=== PATIENT | male | born 1985 | race Hispanic/Latino ===

== ENCOUNTER 2018-02-21 18:23 | Emergency (ER) | payer BC, SELFPAY ==
[2018-02-21] MEDS ORDERED: NA CHLORIDE 0.9% 3,000 ML ONE (18:38)
--- NOTE | 2018-02-21 18:54 | RAD REPORT ---
EXAM DESCRIPTION: Lesley Single View02/21/2018 6:43 pm CLINICAL HISTORY: cough COMPARISON: 2012 FINDINGS: The lungs appear clear of acute infiltrate. The heart is normal size IMPRESSION: No acute abnormalities displayed
[2018-02-21 19:03] LABS: Absolute Lymphocytes (CBC) 3.6 K/uL (0.7-4.9); Absolute Neutrophil 7.5 K/uL (1.8-8.0); Basophils % 0.6 % (0-1.3); Eosinophils % 0.4 % (0-4.4); Hematocrit 49.6 % (39.6-49.0); Lymphocytes % 29.5 % (15.3-44.8); MCH 27.9 pg (27.0-35.0); MCV 82.7 fL (80-100); MPV 8.3 fL (7.6-11.3); Monocytes % 8.5 % (3.3-12.3)
[2018-02-21 19:14] LABS: ALT/SGPT 59 U/L (12-78); AST/SGOT 21 U/L (15-37); Albumin 4.3 g/dL (3.4-5.0); Alkaline Phosphatase 59 U/L (45-117); BUN Blood Urea Nitrogen 18 mg/dL (7-18); Bicarbonate 24 mmol/L (21-32); Bilirubin Direct 0.1 mg/dL (0-0.2); Bilirubin Total 0.4 mg/dL (0.2-1.0); CKMB Creatine Kinase MB < 1.0 ng/mL (0.3-3.6); Creatine Phosphokinase 138 U/L (39-308); Glucose Level 100 mg/dL (74-106); Magnesium 2.6 mg/dL (1.8-2.4); NT PRO-BNP 18 pg/mL (<125); Potassium 3.8 mmol/L (3.5-5.1); Protein, Total 8.5 g/dL (6.4-8.2); Sodium Level 141 mmol/L (136-145)
--- NOTE | 2018-02-21 19:27 | ER ---
Nurse's Notes [facility] Name: Seymour Ray Age: 32 yrs Sex: Male : 1985 Arrival Date: 02/21/2018 Time: 18:25 Bed 3 Private MD: Diagnosis: Heat exhaustion, unspecified;Syncope and collapse;Volume depletion Presentation: 02/21 18:26 Presenting complaint: EMS states: "He was in PPE for about an hour and started getting jl7 hot. He was a little disoriented when we first got him and he started to come around now.". Transition of care: patient was not received from another setting of care. Onset of symptoms was February 21, 2018 at 17:55. Risk Assessment: Do you want to hurt yourself or someone else? Patient reports no desire to harm self or others. Initial Sepsis Screen: Does the patient meet any 2 criteria? No. Patient's initial sepsis screen is negative. Does the patient have a suspected source of infection? No. Patient's initial sepsis screen is negative. Care prior to arrival: Medication(s) given: Normal saline infusion, 500 mL, IV initiated. 18 GA, in the left antecubital area, Oxygen administered. via a non-rebreather mask. 18:26 Method Of Arrival: EMS: [place] [id number] 18:26 Acuity: SERJIO 3 jl7 Triage Assessment: 18:39 General: Appears uncomfortable, obese, Behavior is calm, cooperative. Pain: Complains jl7 of pain in headache Pain does not radiate. Pain currently is 4 out of 10 on a pain scale. EENT: No signs and/or symptoms were reported regarding the EENT system. Neuro: Level of Consciousness is awake, alert, obeys commands, Oriented to person, place, time, situation. Cardiovascular: Rhythm is sinus tachycardia. Respiratory: Airway is patent Respiratory effort is even, unlabored, Respiratory pattern is regular, symmetrical. GI: Patient currently denies diarrhea, nausea, vomiting. : No signs and/or symptoms were reported regarding the genitourinary system. Derm: Skin is diaphoretic, Skin is red, Skin temperature is warm. Musculoskeletal: No signs and/or symptoms reported regarding the musculoskeletal system. Historical: - Allergies: 18:30 No Known Allergies; jl7 - Home Meds: 18:30 None [Active]; jl7 - PMHx: 18:30 None; jl7 - PSHx: 18:30 None; jl7 - Immunization history:: Adult Immunizations up to date. - Social history:: Smoking status: Patient uses tobacco products, chewing tobacco. - Ebola Screening: : No symptoms or risks identified at this time. - Family history:: not pertinent. Screenin:42 Abuse screen: Denies threats or abuse. Denies injuries from another. Nutritional jl7 screening: No deficits noted. Tuberculosis screening: No symptoms or risk factors identified. Fall Risk IV access (20 points). Total Haley Fall Scale indicates No Risk (0-24 pts). Assessment: 18:41 General: See triage assessment. jl7 19:17 General: Appears in no apparent distress. Behavior is calm, cooperative, appropriate ea for age. General:. Pain: Denies pain. Neuro: Level of Consciousness is awake, alert, obeys commands, Oriented to person, place, time, situation. Cardiovascular: Heart tones S1 S2 present Patient's skin is warm and dry. Respiratory: Airway is patent Respiratory effort is even, unlabored, Respiratory pattern is regular, symmetrical, Breath sounds are clear bilaterally. GI: Abdomen is obese, Bowel sounds present X 4 quads. : No signs and/or symptoms were reported regarding the genitourinary system. Derm: Skin is pink, warm \\T\\ dry. 20:16 Reassessment: Patient and/or family updated on plan of care and expected duration. Pain ea level reassessed. Patient is alert, oriented x 3, equal unlabored respirations, skin warm/dry/pink. Discharge instructions given to patient, verbalized the understanding of instructions. Patient denies pain at this time. Patient states feeling better. Patient states symptoms have improved. Vital Signs: 18:30 BP 134 / 86; Pulse 128; Resp 12 S; Temp 98.7(O); Pulse Ox 97% on R/A; Weight 156.94 kg jl7 (R); Height 6 ft. 1 in. (185.42 cm) (R); Pain 0/10; 20:16 BP 137 / 89; Pulse 92; Resp 18; Temp 98; Pulse Ox 98% on R/A; Pain 0/10; ea 18:30 Body Mass Index 45.65 (156.94 kg, 185.42 cm) [facility] ED Course: 18:25 Patient arrived in ED. aj 18:27 Jabari Gao MD is Attending Physician. bernardino 18:29 Triage completed. jl7 18:29 Maintain EMS IV. EMS line blew, line dc'd. jl7 18:30 Arm band placed on right wrist. jl7 18:31 Initial lab(s) drawn, by me, sent to lab. Inserted saline lock: 20 gauge in right dh3 antecubital area, using aseptic technique. Blood collected. 18:42 X-ray completed. Portable x-ray completed in exam room. Patient tolerated procedure bb2 well. 18:42 Mariposa Ferrara, RN is Primary Nurse. aj 18:42 XRAY Chest (1 view) In Process Unspecified. EDMS 18:42 Patient has correct armband on for positive identification. Placed in gown. Bed in low jl7 position. Call light in reach. Side rails up X2. shelter monitor on. Pulse ox on. NIBP on. Warm blanket given. 18:45 EKG done, by ED staff, reviewed by Jabari Gao MD. [facility] 19:12 Mary Jackson, RN is Primary Nurse. ea 20:27 No provider procedures requiring assistance completed. IV discontinued, intact, ea bleeding controlled, No redness/swelling at site. Pressure dressing applied. Administered Medications: 18:39 Drug: NS 0.9% 1000 ml Route: IV; Rate: 1 bolus; Site: right antecubital; jl7 20:29 Follow up: Response: No adverse reaction; IV Status: Completed infusion; IV Intake: ea 1000ml 18:39 Drug: NS 0.9% 1000 ml Route: IV; Rate: 1 bolus; Site: right antecubital; jl7 20:28 Follow up: Response: No adverse reaction; IV Status: Completed infusion; IV Intake: ea 1000ml 19:12 Drug: NS 0.9% 1000 ml Route: IV; Rate: 1 bolus; Site: right antecubital; jl7 20:28 Follow up: Response: No adverse reaction; IV Status: Completed infusion; IV Intake: ea 1000ml 20:03 Drug: Potassium Effervescent Tablet 25 mEq Route: PO; ea 20:28 Follow up: Response: No adverse reaction ea Intake: 20:28 IV: 1000ml; Total: 1000ml. ea 20:28 IV: 1000ml; Total: 2000ml. ea 20:29 IV: 1000ml; Total: 3000ml. ea Outcome: 19:27 Discharge ordered by . bernardino 20:27 Discharged to home ambulatory, with friend. abimbola 20:27 Condition: improved 20:27 Discharge instructions given to patient, Instructed on discharge instructions, follow up and referral plans. Demonstrated understanding of instructions, follow-up care. 20:29 Patient left the ED. ea Signatures: Dispatcher [employer] EDMariposa Clemons, RN Jabari Blue MD MD cha Leal, Jahala, RN RN 7 Jessica Pederson [facility] Mary Jackson RN RN ea Bock, Brittany 2
--- NOTE | 2018-02-21 19:27 | EDPHYS ---
Physician Documentation [facility] Name: Seymour Ray Age: 32 yrs Sex: Male : 1985 Arrival Date: 02/21/2018 Time: 18:25 Bed 3 Private MD: ED Physician Jabari Gao HPI: 02/21 18:55 This 32 yrs old Male presents to ER via EMS with complaints of Heat Exposure. bernardino 18:55 syncope, heat related. The patient has experienced near-syncope. Onset: The bernardino symptoms/episode began/occurred just prior to arrival. Duration: This was a single episode, that lasted 20 second(s). Context: the episode(s) was witnessed, by co-worker(s), occurred at work, occurred while the patient was working, Just prior to the episode the patient experienced heat exposure. Associated injury: The patient did not suffer any apparent associated injury. Associated signs and symptoms: The patient has no apparent associated signs or symptoms. Severity of symptoms: At their worst the symptoms were mild in the emergency department the symptoms are unchanged. Historical: - Allergies: 18:30 No Known Allergies; jl7 - Home Meds: 18:30 None [Active]; jl7 - PMHx: 18:30 None; jl7 - PSHx: 18:30 None; jl7 - Immunization history:: Adult Immunizations up to date. - Social history:: Smoking status: Patient uses tobacco products, chewing tobacco. - Ebola Screening: : No symptoms or risks identified at this time. - Family history:: not pertinent. ROS: 18:55 Constitutional: Negative for fever, chills, and weight loss, Eyes: Negative for injury, bernardino pain, redness, and discharge, ENT: Negative for injury, pain, and discharge, Neck: Negative for injury, pain, and swelling, Cardiovascular: Negative for chest pain, palpitations, and edema, Respiratory: Negative for shortness of breath, cough, wheezing, and pleuritic chest pain, Abdomen/GI: Negative for abdominal pain, nausea, vomiting, diarrhea, and constipation, Back: Negative for injury and pain, : Negative for injury, bleeding, discharge, and swelling, MS/Extremity: Negative for injury and deformity, Skin: Negative for injury, rash, and discoloration, Psych: Negative for depression, anxiety, suicide ideation, homicidal ideation, and hallucinations, Allergy/Immunology: Negative for hives, rash, and allergies, Endocrine: Negative for neck swelling, polydipsia, polyuria, polyphagia, and marked weight changes, Hematologic/Lymphatic: Negative for swollen nodes, abnormal bleeding, and unusual bruising. 18:55 Neuro: Positive for speech changes, weakness. Exam: 18:55 Constitutional: This is a well developed, well nourished patient who is awake, alert, bernardino and in no acute distress. Head/Face: Normocephalic, atraumatic. Eyes: Pupils equal round and reactive to light, extra-ocular motions intact. Lids and lashes normal. Conjunctiva and sclera are non-icteric and not injected. Cornea within normal limits. Periorbital areas with no swelling, redness, or edema. ENT: Nares patent. No nasal discharge, no septal abnormalities noted. Tympanic membranes are normal and external auditory canals are clear. Oropharynx with no redness, swelling, or masses, exudates, or evidence of obstruction, uvula midline. Mucous membranes moist. Neck: Trachea midline, no thyromegaly or masses palpated, and no cervical lymphadenopathy. Supple, full range of motion without nuchal rigidity, or vertebral point tenderness. No Meningismus. Chest/axilla: Normal chest wall appearance and motion. Nontender with no deformity. No lesions are appreciated. Respiratory: Lungs have equal breath sounds bilaterally, clear to auscultation and percussion. No rales, rhonchi or wheezes noted. No increased work of breathing, no retractions or nasal flaring. Abdomen/GI: Soft, non-tender, with normal bowel sounds. No distension or tympany. No guarding or rebound. No evidence of tenderness throughout. Back: No spinal tenderness. No costovertebral tenderness. Full range of motion. Male : Normal genitalia with no discharge or lesions. Skin: Warm, dry with normal turgor. Normal color with no rashes, no lesions, and no evidence of cellulitis. MS/ Extremity: Pulses equal, no cyanosis. Neurovascular intact. Full, normal range of motion. Neuro: Awake and alert, GCS 15, oriented to person, place, time, and situation. Cranial nerves II-XII grossly intact. Motor strength 5/5 in all extremities. Sensory grossly intact. Cerebellar exam normal. Normal gait. Psych: Awake, alert, with orientation to person, place and time. Behavior, mood, and affect are within normal limits. 18:55 Cardiovascular: Rate: tachycardic, Rhythm: regular, Pulses: Pulses are 4+ in bilateral radial, brachial, femoral, popliteal, posterior tibial and and dorsalis pedis arteries.. Heart sounds: normal, Edema: is not appreciated, JVD: is not appreciated. 19:27 Neuro: Orientation: is normal, appropriate for stated age, Mentation: is normal, bernardino appropriate for stated age, no acute changes, Memory: is normal, appropriate for stated age, no acute changes, Cranial nerves: grossly normal, is grossly normal based on the patient's age, no acute changes, Cerebellar function: is grossly normal, is grossly normal based on the patient's age, no acute changes, Motor: is normal, is grossly normal based on the patient's age, no acute changes, moves all fours, strength is normal, Sensation: is normal, no obvious gross deficits, appropriate no acute changes, Gait: not tested. Deep tendon reflexes are 2+ (normal) in the bilateral brachioradialis, bicep, tricep and patellar and Achilles tendons, Babinski testing is normal, seizure activity, is not displayed by the patient. 19:36 Musculoskeletal/extremity: DVT Exam: No signs of deep vein thrombosis. no pain, no bernardino swelling, no tenderness, negative Homans' sign noted on exam, no appreciated bluish discoloration, no erythema, no increased warmth. Vital Signs: 18:30 BP 134 / 86; Pulse 128; Resp 12 S; Temp 98.7(O); Pulse Ox 97% on R/A; Weight 156.94 kg jl7 (R); Height 6 ft. 1 in. (185.42 cm) (R); Pain 0/10; 20:16 BP 137 / 89; Pulse 92; Resp 18; Temp 98; Pulse Ox 98% on R/A; Pain 0/10; ea 18:30 Body Mass Index 45.65 (156.94 kg, 185.42 cm) jl7 MDM: 18:27 Patient medically screened. [facility] 18:57 Data reviewed: vital signs, nurses notes, lab test result(s), EKG, radiologic studies, [facility] plain films. 02/21 18: Order name: Basic Metabolic Panel; Complete Time: 19: [facility] 02/21 18:26 Order name: CBC with Diff; Complete Time: 19:26 02/21 18:26 Order name: Ckmb; Complete Time: 19:26 02/21 18:26 Order name: CPK; Complete Time: 19:26 02/21 18:26 Order name: LFT's; Complete Time: 19:26 02/21 18:26 Order name: Magnesium; Complete Time: 19:26 02/21 18:26 Order name: NT PRO-BNP; Complete Time: 19:02/21 18:26 Order name: PT-INR; Complete Time: 19:26 02/21 18:26 Order name: Ptt, Activated; Complete Time: 19:26 02/21 18:26 Order name: Troponin (emerg Dept Use Only); Complete Time: :02/21 18:26 Order name: XRAY Chest (1 view); Complete Time: 19:26 02/21 18:26 Order name: EKG; Complete Time: 18:27 02/21 18:26 Order name: Cardiac monitoring; Complete Time: 18:38 02/21 18:26 Order name: EKG - Nurse/Tech; Complete Time: 19:07 02/21 18:26 Order name: IV Saline Lock; Complete Time: 18:38 02/21 18:26 Order name: Labs collected and sent; Complete Time: 18:38 02/21 18:26 Order name: O2 Per Protocol; Complete Time: 18:38 02/21 18:26 Order name: O2 Sat Monitoring; Complete Time: 18:38 02/21 18:54 Order name: PO challenge: ice h2o; Complete Time: 19:10 [facility] Administered Medications: 18:39 Drug: NS 0.9% 1000 ml Route: IV; Rate: 1 bolus; Site: right antecubital; jl7 20:29 Follow up: Response: No adverse reaction; IV Status: Completed infusion; IV Intake: ea 1000ml 18:39 Drug: NS 0.9% 1000 ml Route: IV; Rate: 1 bolus; Site: right antecubital; jl7 20:28 Follow up: Response: No adverse reaction; IV Status: Completed infusion; IV Intake: ea 1000ml 19:12 Drug: NS 0.9% 1000 ml Route: IV; Rate: 1 bolus; Site: right antecubital; jl7 20:28 Follow up: Response: No adverse reaction; IV Status: Completed infusion; IV Intake: ea 1000ml 20:03 Drug: Potassium Effervescent Tablet 25 mEq Route: PO; ea 20:28 Follow up: Response: No adverse reaction ea Disposition: 02/21/18 19:27 Discharged to Home. Impression: Heat exhaustion, unspecified, Syncope and collapse, Volume depletion. - Condition is Stable. - Discharge Instructions: Syncope, Weakness, Syncope, [id number], Heat Exhaustion Information, Weakness, [id number]. - Medication Reconciliation Form, Thank You Letter, Antibiotic Education, Prescription Opioid Use form. - Follow up: Private Physician; When: 2 - 3 days; Reason: Recheck today's complaints, Continuance of care, Re-evaluation by your physician. - Problem is new. - Symptoms have improved. Signatures: Dispatcher [employer] EDMS Jabari Gao MD MD cha Leal, Jahala RN RN jl7 Mary Jackson RN RN ea Corrections: (The following items were deleted from the chart) 20:29 19:27 02/21/2018 19:27 Discharged to Home. Impression: Heat exhaustion, unspecified; ea Syncope and collapse; Volume depletion. Condition is Stable. Discharge Instructions: Syncope, Weakness, Syncope, [id number], Heat Exhaustion Information, Weakness, [id number]. Forms are Medication Reconciliation Form, Thank You Letter, Antibiotic Education, Prescription Opioid Use. Follow up: Private Physician; When: 2 - 3 days; Reason: Recheck today's complaints, Continuance of care, Re-evaluation by your physician. Problem is new. Symptoms have improved. bernardino
[2018-02-21] MEDS ORDERED: POTASSIUM 25 MEQ EFFERV TAB ONE (20:00)
--- NOTE | 2018-02-22 06:46 | EKG ---
Test Date: 2018-02-21 Test Time: 18:38:56 After School Program Director: LAURI MEASUREMENT RESULTS: Intervals: Rate: 126 [place]: 156 QRSD: 86 QT: 300 QTc: 434 [place]: P: 48 [place]: 156 QRS: 233 T: 45 INTERPRETIVE STATEMENTS: Sinus tachycardia Right superior axis deviation Septal infarct, age undetermined Abnormal ECG No previous ECG available for comparison Electronically Signed On 02-22-18 06:45:06 CDT by Kirby Carl
== END 2018-02-21 20:29 | disposition home or self-care (01) ==
LOC: ER 18:23
DX: E86.9 Volume depletion, unspecified (principal); T67.5XXA Heat exhaustion, unspecified, initial encounter; X58.XXXA Exposure to other specified factors, initial encounter; Y93.89 Activity, other specified; Y92.89 Other specified places as the place of occurrence of the external cause; Y99.8 Other external cause status; Z72.0 Tobacco use
CPT/HCPCS: 36415; 71045; 80048; 80076; 82550; 82553; 83735; 83880; 84484; 85025; 85610; 85730; 93005; 96360; 96361; 99285; J7030

== ENCOUNTER 2019-02-02 14:09 | Emergency (ER) | payer SELFPAY ==
--- NOTE | 2019-02-02 15:05 | EDPHYS ---
Physician Documentation [facility] Name: Seymour Ray Age: 33 yrs Sex: Male : 1985 Arrival Date: 02/02/2019 Time: 14:10 Bed 28 Private MD: ED Physician Domingo Cohen HPI: 02/02 14:56 This 33 yrs old Male presents to ER via EMS with complaints of Ankle Injury. jr8 14:56 The patient presents with decreased range of motion, pain, swelling, tenderness. The jr8 complaints affect the right ankle. Onset: The symptoms/episode began/occurred acutely, today. Context: The problem was sustained at work, resulted from a mis-step by the patient, The mechanism of injury involved inversion of the affected ankle. The patient is unable to bear weight. Associated signs and symptoms: The patient has no apparent associated signs or symptoms. Modifying factors: The symptoms are alleviated by nothing, the symptoms are aggravated by weight bearing, movement. Severity of symptoms: At their worst the symptoms were moderate, in the emergency department the symptoms are unchanged. The patient has not experienced similar symptoms in the past. The patient has not recently seen a physician. 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 [place] a popping noise. Pain to lateral ankle since incident . Historical: - Allergies: 14:17 No Known Allergies; ca1 - Home Meds: 14:17 Antidepressant [Active]; ca1 - PMHx: 14:17 Depression; ca1 - PSHx: 14:17 None; ca1 - Immunization history:: Adult Immunizations up to date, Last tetanus immunization: unknown. - Social history:: Smoking status: Patient uses tobacco products, chewing tobacco. - Ebola Screening: : Patient negative for fever greater than or equal to 101.5 degrees Fahrenheit, and additional compatible Ebola Virus Disease symptoms Patient denies exposure to infectious person Patient denies travel to an Ebola-affected area in the 21 days before illness onset No symptoms or risks identified at this time. ROS: 14:56 Eyes: Negative for injury, pain, redness, and discharge, ENT: Negative for injury, jr8 pain, and discharge, Neck: Negative for injury, pain, and swelling, Cardiovascular: Negative for chest pain, palpitations, and edema, Respiratory: Negative for shortness of breath, cough, wheezing, and pleuritic chest pain, Abdomen/GI: Negative for abdominal pain, nausea, vomiting, diarrhea, and constipation, Back: Negative for injury and pain, Skin: Negative for injury, rash, and discoloration, Neuro: Negative for headache, weakness, numbness, tingling, and seizure. 14:56 MS/extremity: Positive for decreased range of motion, pain, swelling, tenderness, of the right ankle. Exam: 14:56 Eyes: Pupils equal round and reactive to light, extra-ocular motions intact. Lids and jr8 lashes normal. Conjunctiva and sclera are non-icteric and not injected. Cornea within normal limits. Periorbital areas with no swelling, redness, or edema. ENT: Nares patent. No nasal discharge, no septal abnormalities noted. Tympanic membranes are normal and external auditory canals are clear. Oropharynx with no redness, swelling, or masses, exudates, or evidence of obstruction, uvula midline. Mucous membranes moist. Neck: Trachea midline, no thyromegaly or masses palpated, and no cervical lymphadenopathy. Supple, full range of motion without nuchal rigidity, or vertebral point tenderness. No Meningismus. Cardiovascular: Regular rate and rhythm with a normal S1 and S2. No gallops, murmurs, or rubs. Normal PMI, no JVD. No pulse deficits. Respiratory: Lungs have equal breath sounds bilaterally, clear to auscultation and percussion. No rales, rhonchi or wheezes noted. No increased work of breathing, no retractions or nasal flaring. Abdomen/GI: Soft, non-tender, with normal bowel sounds. No distension or tympany. No guarding or rebound. No evidence of tenderness throughout. Back: No spinal tenderness. No costovertebral tenderness. Full range of motion. Skin: Warm, dry with normal turgor. Normal color with no rashes, no lesions, and no evidence of cellulitis. Neuro: Awake and alert, GCS 15, oriented to person, place, time, and situation. Cranial nerves II-XII grossly intact. Motor strength 5/5 in all extremities. Sensory grossly intact. Cerebellar exam normal. Normal gait. 14:56 Musculoskeletal/extremity: Extremities: grossly normal except: noted in the right ankle: Patient has mild to moderate soft tissue swelling to right lateral ankle with point tenderness to lateral malleolus. No other trauma noted. Decreased ROM secondary to pain , Circulation is intact in all extremities. Pulses: noted to be 2+ in the right radial artery, right dorsalis pedis artery, left radial artery and left dorsalis pedis artery, Sensation intact. Vital Signs: 14:14 BP 146 / 75; Pulse 124; Resp 20; Temp 97.9(O); Pulse Ox 97% ; lt1 14:17 Weight 158.76 kg (R); Height 6 ft. 1 in. (185.42 cm) (R); Pain 6/10; ca1 14:17 Body Mass Index 46.18 (158.76 kg, 185.42 cm) ca1 Procedures: 15:03 Splinting: Splint applied to right ankle using surendra wrap, applied by tech. Examined by jrNirali me, post splint application: neurovascular intact, 2+ distal pulses palpable, brisk capillary refill noted, Patient tolerated well. Crutch training provided to patient and/or family. Return demonstration given. MDM: 14:11 Patient medically screened. jr8 15:03 Data reviewed: vital signs, nurses notes, radiologic studies, plain films. Data jr8 interpreted: Pulse oximetry: on room air is 97 %. Interpretation: normal. Counseling: I had a detailed discussion with the patient and/or guardian regarding: the historical points, exam findings, and any diagnostic results supporting the discharge/admit diagnosis, radiology results, the need for outpatient follow up, a orthopedic surgeon, to return to the emergency department if symptoms worsen or persist or if there are any questions or concerns that arise at home. 02/02 14:22 Order name: XRAY Ankle RIGHT 3 view jr8 02/02 14:58 Order name: Surendra Wrap; Complete Time: 15:13 jr8 02/02 15:03 Order name: Crutches; Complete Time: 15:13 jr8 Administered Medications: No medications were administered Disposition: 16:11 Co-signature as Attending Physician, Domingo Cohen MD I agree with the assessment and kdr plan of care. Disposition: 02/02/19 15:04 Discharged to Home. Impression: Sprain of ankle. - Condition is Stable. - Discharge Instructions: Ankle Sprain. - Prescriptions for Ibuprofen 800 mg Oral Tablet - take 1 tablet by ORAL route every 12 hours As needed take with food; 20 tablet. - Work release form, Medication Reconciliation Form, Thank You Letter, Antibiotic Education, Prescription Opioid Use form. - Follow up: Aldo Campbell MD; When: 7 - 10 days; Reason: If symptoms return, Recheck today's complaints, Continuance of care, Re-evaluation by your physician. - Problem is new. - Symptoms have improved. Signatures: Dispatcher [employer] EDMS Domingo Cohen MD MD [facility] Shay Núñez PA PA jr8 Agata Bell RN RN ca1 Corrections: (The following items were deleted from the chart) 15:29 15:04 02/02/2019 15:04 Discharged to Home. Impression: Sprain of ankle. Condition is ca1 Stable. Forms are Medication Reconciliation Form, Thank You Letter, Antibiotic Education, Prescription Opioid Use. Follow up: Aldo Campbell; When: 7 - 10 days; Reason: If symptoms return, Recheck today's complaints, Continuance of care, Re-evaluation by your physician. Problem is new. Symptoms have improved. jr8
--- NOTE | 2019-02-02 15:05 | ER ---
Nurse's Notes [facility] Name: Seymour Ray Age: 33 yrs Sex: Male : 1985 Arrival Date: 02/02/2019 Time: 14:10 Bed 28 Private MD: Diagnosis: Sprain of ankle Presentation: 02/02 14:13 Presenting complaint: EMS states: PT rolled ankle and fell on R arm. Denies arm pain. ca1 C/O R ankle pain of 7/10 and swelling. Transition of care: patient was not received from another setting of care. Onset of symptoms was February 02, 2019. Risk Assessment: Do you want to hurt yourself or someone else? Patient reports no desire to harm self or others. Initial Sepsis Screen: Does the patient meet any 2 criteria? No. Patient's initial sepsis screen is negative. Does the patient have a suspected source of infection? No. Patient's initial sepsis screen is negative. Care prior to arrival: Splint applied. 14:13 Method Of Arrival: EMS: [facility] ca1 14:13 Acuity: SERJIO 4 ca1 Triage Assessment: 14:17 General: Appears in no apparent distress. Behavior is calm, cooperative, appropriate ca1 for age. Pain: Complains of pain in right foot Pain currently is 6 out of 10 on a pain scale. Musculoskeletal: Circulation, motion, and sensation intact. Capillary refill < 3 seconds, Range of motion: limited in right ankle. Historical: - Allergies: 14:17 No Known Allergies; ca1 - Home Meds: 14:17 Antidepressant [Active]; ca1 - PMHx: 14:17 Depression; ca1 - PSHx: 14:17 None; ca1 - Immunization history:: Adult Immunizations up to date, Last tetanus immunization: unknown. - Social history:: Smoking status: Patient uses tobacco products, chewing tobacco. - Ebola Screening: : Patient negative for fever greater than or equal to 101.5 degrees Fahrenheit, and additional compatible Ebola Virus Disease symptoms Patient denies exposure to infectious person Patient denies travel to an Ebola-affected area in the 21 days before illness onset No symptoms or risks identified at this time. Screenin:19 Abuse screen: Denies threats or abuse. Denies injuries from another. Nutritional ca1 screening: No deficits noted. Tuberculosis screening: No symptoms or risk factors identified. Fall Risk None identified. Assessment: 14:19 Reassessment: SEE TRIAGE ASSESSMENT. ca1 15:28 Reassessment: Patient appears in no apparent distress at this time. Patient is alert, ca1 oriented x 3, equal unlabored respirations, skin warm/dry/pink. Surendra wrap on R ankle. Demonstrated proper crutch walking. Vital Signs: 14:14 BP 146 / 75; Pulse 124; Resp 20; Temp 97.9(O); Pulse Ox 97% ; lt1 14:17 Weight 158.76 kg (R); Height 6 ft. 1 in. (185.42 cm) (R); Pain 6/10; ca1 14:17 Body Mass Index 46.18 (158.76 kg, 185.42 cm) ca1 ED Course: 14:10 Patient arrived in ED. ca1 14:11 Shay Núñez PA is PHCP. jr8 14:11 Domingo Cohen MD is Attending Physician. jr8 14:13 Agata Bell RN is Primary Nurse. ca1 14:16 Triage completed. ca1 14:17 Arm band placed on right wrist. ca1 14:19 Patient has correct armband on for positive identification. Bed in low position. Call ca1 light in reach. Side rails up X 1. Pulse ox on. NIBP on. Warm blanket given. 14:56 XRAY Ankle RIGHT 3 view In Process Unspecified. EDMS 15:04 Aldo Campbell MD is Referral Physician. jr8 15:12 Crutch training done. Surendra wrap to right ankle. lt1 15:29 No provider procedures requiring assistance completed. Patient did not have IV access ca1 during this emergency room visit. Administered Medications: No medications were administered Outcome: 15:04 Discharge ordered by . jr8 15:29 Discharged to home ambulatory, with crutches, with family. ca1 15:29 Condition: stable 15:29 Discharge instructions given to patient, Instructed on discharge instructions, follow up and referral plans. medication usage, crutch walking, Demonstrated understanding of instructions, follow-up care, medications, crutch walking, Prescriptions given X 1. 15:29 Patient left the ED. ca1 Signatures: Dispatcher [employer] EDMS Shay Núñez PA PA jrAgata Metcalf RN RN ca1 Margaret Givens lt1
--- NOTE | 2019-02-02 15:34 | RAD REPORT ---
EXAM DESCRIPTION: RAD - Ankle Right 3 View - 02/02/2019 2:55 pm CLINICAL HISTORY: Ankle pain, twisting injury COMPARISON: None. FINDINGS: No fracture, dislocation or periosteal reaction. No joint effusion seen. No joint space na rrowing. Small bone density along the medial margin of the talus is not suspected to be an acute bony injury. Significant soft tissue swelling is present laterally in the patient's injuries believed to be from ankle inversion. Small plantar spur is present. IMPRESSION: Soft tissue swelling is present without fracture confirmed.
== END 2019-02-02 15:29 | disposition home or self-care (01) ==
LOC: ER 14:09
DX: S93.401A Sprain of unspecified ligament of right ankle, initial encounter (principal); W22.8XXA Striking against or struck by other objects, initial encounter; Y93.89 Activity, other specified; Y92.89 Other specified places as the place of occurrence of the external cause; Y99.8 Other external cause status; F17.220 Nicotine dependence, chewing tobacco, uncomplicated; F32.9 Major depressive disorder, single episode, unspecified
CPT/HCPCS: 99284

== ENCOUNTER 2019-03-02 17:07 | Emergency (ER) | payer SELFPAY ==
[2019-03-02] MEDS ORDERED: NA CHLORIDE 0.9% 0 ML ONE ×2 (17:43→18:42)
[2019-03-02 17:50] LABS: Absolute Lymphocytes (CBC) 2.2 K/uL (0.7-4.9); Basophils % 0.6 % (0-1.3); Hematocrit 43.6 % (39.6-49.0); Lymphocytes % 19.5 % (15.3-44.8); MPV 8.5 fL (7.6-11.3); RBC Red Blood Cell Count 5.27 M/uL (4.33-5.43)
[2019-03-02 17:53] LABS: Protime INR 1.13
--- NOTE | 2019-03-02 18:24 | RAD REPORT ---
EXAM DESCRIPTION: RAD - Chest Single View - 03/02/2019 6:17 pm CLINICAL HISTORY: general weakness Chest pain. COMPARISON: Chest Single View dated 02/21/2018; CHEST PA AND LAT 2 VIEW dated 06/14/2013 FINDINGS: Portable technique limits examination quality. The lungs are grossly clear. The heart is normal in size. No displaced fractures. IMPRESSION: No acute intrathoracic process suspected.
[2019-03-02 18:27] LABS: ALT/SGPT 65 U/L (12-78); AST/SGOT 24 U/L (15-37); Albumin 3.9 g/dL (3.4-5.0); Alkaline Phosphatase 57 U/L (45-117); BUN Blood Urea Nitrogen 16 mg/dL (7-18); Bicarbonate 23 mmol/L (21-32); Bilirubin Direct < 0.1 mg/dL (0-0.2); Bilirubin Total 0.4 mg/dL (0.2-1.0); Creatine Phosphokinase 121 U/L (39-308); Glucose Level 99 mg/dL (74-106); Magnesium 2.1 mg/dL (1.8-2.4); NT PRO-BNP 45 pg/mL (<125); Potassium 3.1 mmol/L (3.5-5.1); Protein, Total 7.4 g/dL (6.4-8.2); Sodium Level 142 mmol/L (136-145); Troponin (Emerg Dept Use Only) < 0.02 ng/mL (0.0-0.045)
[2019-03-02] MEDS ORDERED: KCL 20 MEQ/100 mL IVPB 20 MEQ/100 ML BAG IV ONE (18:42)
[2019-03-02] MEDS ORDERED: NA CHLORIDE 0.9% 1,000 ML ONE ×3 (20:07→20:09)
[2019-03-02 20:45] LABS: Urine Blood NEGATIVE (NEG); Urine Glucose NEGATIVE (NEG); Urine Protein 2+ (NEG); Urine Specific Gravity >1.030 (1.005-1.030)
--- NOTE | 2019-03-02 21:36 | ER ---
Nurse's Notes [facility] Name: Seymour Ray Age: 33 yrs Sex: Male : 1985 Arrival Date: 03/02/2019 Time: 17:13 Bed 24 Private MD: Diagnosis: Hypokalemia;Dehydration;Heat exhaustion, unspecified;Other acute kidney failure Presentation: 03/02 17:14 Presenting complaint: EMS states: pt working all day under the sun since 0800 today. At ca1 1500, pt started to feel fatigued and general body weakness. Pt c/o cramps all over but more on both lower extremities. Transition of care: patient was not received from another setting of care. Onset of symptoms was March 02, 2019. Risk Assessment: Do you want to hurt yourself or someone else? Patient reports no desire to harm self or others. Initial Sepsis Screen: Does the patient meet any 2 criteria? No. Patient's initial sepsis screen is negative. Does the patient have a suspected source of infection? No. Patient's initial sepsis screen is negative. Care prior to arrival: Medication(s) given: Normal saline infusion, 500 mL, IV initiated. 18 GA, in the left antecubital area, Glucose check: 109. 17:14 Method Of Arrival: EMS: [facility] ca1 17:14 Acuity: SERJIO 3 ca1 Triage Assessment: 17:18 General: Appears in no apparent distress. uncomfortable, obese, Behavior is calm, ca1 cooperative, appropriate for age. Pain: Complains of pain in right leg and left leg. Historical: - Allergies: 17:18 No Known Allergies; ca1 - Home Meds: 17:18 None [Active]; ca1 - PMHx: 17:18 Depression; ca1 - PSHx: 17:18 None; ca1 - Immunization history:: Adult Immunizations not up to date. - Social history:: Smoking status: Patient uses tobacco products, chewing tobacco. - Ebola Screening: : Patient negative for fever greater than or equal to 101.5 degrees Fahrenheit, and additional compatible Ebola Virus Disease symptoms Patient denies exposure to infectious person Patient denies travel to an Ebola-affected area in the 21 days before illness onset No symptoms or risks identified at this time. Screenin:20 Abuse screen: Denies threats or abuse. Denies injuries from another. Nutritional ca1 screening: No deficits noted. Tuberculosis screening: No symptoms or risk factors identified. Fall Risk IV access (20 points). Assessment: 17:20 General: Appears in no apparent distress. uncomfortable, obese, Behavior is calm, ca1 cooperative, appropriate for age. Pain: Complains of pain in abdomen, right leg and left leg Pain currently is 5 out of 10 on a pain scale. Quality of pain is described as crampy, Pain began 3 hours ago. Is intermittent. Neuro: Level of Consciousness is awake, alert, obeys commands, Oriented to person, place, time, situation. Neuro: Piping Supervisor are equal bilaterally Moves all extremities. Speech is normal, Facial symmetry appears normal, Pupils are PERRLA. Neuro: Reports dizziness. Cardiovascular: Heart tones S1 S2 present Capillary refill < 3 seconds Patient's skin is warm and dry. Pulses are all present. Rhythm is sinus tachycardia. Respiratory: Airway is patent Respiratory effort is even, unlabored, Respiratory pattern is regular, symmetrical, Breath sounds are clear bilaterally. GI: Abdomen is round non-distended, Bowel sounds present X 4 quads. Abd is soft and non tender X 4 quads. Reports nausea. : No deficits noted. No signs and/or symptoms were reported regarding the genitourinary system. EENT: No deficits noted. No signs and/or symptoms were reported regarding the EENT system. Derm: Skin is intact, is healthy with good turgor, Skin is pink, warm \T\ dry. Musculoskeletal: Circulation, motion, and sensation intact. Capillary refill < 3 seconds, Range of motion: intact in all extremities. 19:12 Reassessment: Patient appears in no apparent distress at this time. Patient and/or ca1 family updated on plan of care and expected duration. Pain level reassessed. Patient is alert, oriented x 3, equal unlabored respirations, skin warm/dry/pink. 20:15 Reassessment: Patient appears in no apparent distress at this time. Patient and/or ca1 family updated on plan of care and expected duration. Pain level reassessed. Patient is alert, oriented x 3, equal unlabored respirations, skin warm/dry/pink. Leg cramps decreased. 21:30 Reassessment: Patient appears in no apparent distress at this time. Patient and/or ca1 family updated on plan of care and expected duration. Pain level reassessed. Patient is alert, oriented x 3, equal unlabored respirations, skin warm/dry/pink. Pending repeat blood work results Patient states feeling better. Vital Signs: 17:18 BP 100 / 62; Pulse 118; Resp 25; Temp 97.9(TE); Pulse Ox 98% on R/A; Weight 158.76 kg ca1 (R); Height 6 ft. 1 in. (185.42 cm) (R); Pain 5/10; 19:12 BP 111 / 59; Pulse 76; Resp 20 S; Pulse Ox 97% on R/A; ca1 20:15 BP 105 / 60; Pulse 90; Resp 17 S; Pulse Ox 96% on R/A; ca1 21:30 BP 100 / 63; Pulse 82; Resp 17 S; Temp 98(O); Pulse Ox 96% on R/A; ca1 17:18 Body Mass Index 46.18 (158.76 kg, 185.42 cm) ca1 ED Course: 17:13 Patient arrived in ED. ca1 17:16 Jabari Godoy PA is PHCP. cp 17:16 Niles Frias MD is Attending Physician. cp 17:18 Triage completed. ca1 17:18 Arm band placed on right wrist. EKG completed in triage. Results shown to MD. ca1 17:19 EKG done, by microcomputer technician. reviewed by Jabari CONWAY. sm3 17:20 No provider procedures requiring assistance completed. Maintain EMS IV. Dressing ca1 intact. Good blood return noted. Site clean \T\ dry. Gauge \T\ site: g18 LAC. 17:20 Patient has correct armband on for positive identification. Placed in gown. Bed in low ca1 position. Call light in reach. Side rails up X2. monitoring tech on. Pulse ox on. NIBP on. Warm blanket given. 17:33 Agata Bell, RN is Primary Nurse. ca1 18:14 X-ray completed. Portable x-ray completed in exam room. Patient tolerated procedure mh1 well. 18:18 XRAY Chest (1 view) In Process Unspecified. EDMS 21:49 IV discontinued, intact, bleeding controlled, No redness/swelling at site. Pressure ca1 dressing applied. Administered Medications: 17:46 Drug: NS 0.9% 1000 ml Route: IV; Rate: 1 bolus; Site: left antecubital; ca1 18:50 Follow up: IV Status: Completed infusion; IV Intake: 1000ml ca1 18:40 Drug: NS 0.9% 1000 ml Route: IV; Rate: 1 bolus; Site: left antecubital; ca1 19:45 Follow up: Response: No adverse reaction; IV Status: Completed infusion; IV Intake: ca1 1000ml 18:42 Drug: Potassium Chloride 20 mEq Route: IV; Rate: calculated rate; Site: left ca1 antecubital; 20:50 Follow up: Response: No adverse reaction; IV Status: Completed infusion; IV Intake: ca1 100ml 20:11 Drug: NS 0.9% 1000 ml Route: IV; Rate: 1 bolus; Site: left antecubital; ca1 21:15 Follow up: Response: No adverse reaction; IV Status: Completed infusion; IV Intake: ca1 1000ml Intake: 18:50 IV: 1000ml; Total: 1000ml. ca1 19:45 IV: 1000ml; Total: 2000ml. ca1 20:50 IV: 100ml; Total: 2100ml. ca1 21:15 IV: 1000ml; Total: 3100ml. ca1 Outcome: 21:32 Discharge ordered by MD. cp 21:49 Discharged to home ambulatory, with family. ca1 21:49 Condition: stable 21:49 Discharge instructions given to patient, Instructed on discharge instructions, follow up and referral plans. Demonstrated understanding of instructions, follow-up care. 21:49 Patient left the ED. ca1 Signatures: Dispatcher [employer] EDLatasha Campoverde 1 Jabari Godoy PA PA Anne Alatorre 3 Agata Bell RN RN ca1
--- NOTE | 2019-03-02 21:37 | EDPHYS ---
Physician Documentation [facility] Name: Seymour Ray Age: 33 yrs Sex: Male : 1985 Arrival Date: 03/02/2019 Time: 17:13 Bed 24 Private MD: ED Physician Niles Frias HPI: 03/02 17:35 This 33 yrs old Male presents to ER via EMS with complaints of General cp Weakness. 17:35 general weakness, generalized cramping. Onset: The symptoms/episode began/occurred just cp prior to arrival. Patient reports working outside all morning and today. 17:35 Severity of symptoms: in the emergency department the symptoms have improved mildly. cp Historical: - Allergies: 17:18 No Known Allergies; ca1 - Home Meds: 17:18 None [Active]; ca1 - PMHx: 17:18 Depression; ca1 - PSHx: 17:18 None; ca1 - Immunization history:: Adult Immunizations not up to date. - Social history:: Smoking status: Patient uses tobacco products, chewing tobacco. - Ebola Screening: : Patient negative for fever greater than or equal to 101.5 degrees Fahrenheit, and additional compatible Ebola Virus Disease symptoms Patient denies exposure to infectious person Patient denies travel to an Ebola-affected area in the 21 days before illness onset No symptoms or risks identified at this time. ROS: 17:45 Constitutional: Negative for body aches, chills, fever, poor PO intake. cp 17:45 Eyes: Negative for injury, pain, redness, and discharge. cp 17:45 ENT: Negative for drainage from ear(s), ear pain, sore throat, difficulty swallowing, difficulty handling secretions. 17:45 Cardiovascular: Negative for chest pain, edema, palpitations. 17:45 Respiratory: Negative for cough, shortness of breath, wheezing. 17:45 Abdomen/GI: Negative for vomiting, diarrhea, constipation, black/tarry stool, rectal bleeding. 17:45 : Negative for urinary symptoms, difficulty urinating. 17:45 Skin: Negative for cellulitis, rash. 17:45 Neuro: Positive for generalized weakness, Negative for altered mental status, dizziness, headache. 17:45 All other systems are negative. Exam: 17:25 ECG was reviewed by the Attending Physician. cp 17:50 Constitutional: The patient appears in no acute distress, alert, awake, cp non-diaphoretic, non-toxic, well developed, well nourished, obese. 17:50 Head/Face: Normocephalic, atraumatic. Eyes: Pupils equal round and reactive to light, cp extra-ocular motions intact. Lids and lashes normal. Conjunctiva and sclera are non-icteric and not injected. Cornea within normal limits. Periorbital areas with no swelling, redness, or edema. ENT: Nares patent. No nasal discharge, no septal abnormalities noted. Tympanic membranes are normal and external auditory canals are clear. Oropharynx with no redness, swelling, or masses, exudates, or evidence of obstruction, uvula midline. Mucous membranes moist. Neck: Trachea midline, no thyromegaly or masses palpated, and no cervical lymphadenopathy. Supple, full range of motion without nuchal rigidity, or vertebral point tenderness. No Meningismus. Chest/axilla: Normal chest wall appearance and motion. Nontender with no deformity. No lesions are appreciated. 17:50 Cardiovascular: Rate: tachycardic, Rhythm: regular, Edema: is not appreciated, JVD: is not appreciated. 17:50 Respiratory: the patient does not display signs of respiratory distress, Respirations: normal, no use of accessory muscles, no retractions, no splinting, no tachypnea, labored breathing, is not present, Breath sounds: are clear throughout, no decreased breath sounds, no stridor, no wheezing. 17:50 Abdomen/GI: Inspection: obese Bowel sounds: active, all quadrants, Palpation: abdomen is soft and non-tender, in all quadrants, rebound tenderness, is not appreciated, voluntary guarding, is not appreciated, involuntary guarding, is not appreciated. 17:50 Back: pain, is absent, ROM is normal. 17:50 Skin: no rash present. 17:50 Neuro: Orientation: to person, place \T\ time. Mentation: is normal, Cerebellar function: is grossly normal, Motor: moves all fours, strength is normal, Sensation: is normal. Vital Signs: 17:18 BP 100 / 62; Pulse 118; Resp 25; Temp 97.9(TE); Pulse Ox 98% on R/A; Weight 158.76 kg ca1 (R); Height 6 ft. 1 in. (185.42 cm) (R); Pain 5/10; 19:12 BP 111 / 59; Pulse 76; Resp 20 S; Pulse Ox 97% on R/A; ca1 20:15 BP 105 / 60; Pulse 90; Resp 17 S; Pulse Ox 96% on R/A; ca1 21:30 BP 100 / 63; Pulse 82; Resp 17 S; Temp 98(O); Pulse Ox 96% on R/A; ca1 17:18 Body Mass Index 46.18 (158.76 kg, 185.42 cm) ca1 MDM: 17:29 Patient medically screened. cp 21:30 Data reviewed: vital signs, nurses notes, lab test result(s), EKG, radiologic studies, cp plain films. 21:30 Test interpretation: by ED physician or midlevel provider: ECG, plain radiologic cp studies. Counseling: I had a detailed discussion with the patient and/or guardian regarding: the historical points, exam findings, and any diagnostic results supporting the discharge/admit diagnosis, lab results, radiology results, the need for outpatient follow up, a family practitioner, to return to the emergency department if symptoms worsen or persist or if there are any questions or concerns that arise at home. Response to treatment: the patient's symptoms have markedly improved after treatment, and as a result, I will discharge patient. ED course: VSS. Patient reports he is feeling better. Will discharge to home to continue oral hydration. 03/02 17:28 Order name: Basic Metabolic Panel; Complete Time: 18:36 cp 03/02 19:37 Interpretation: Normal except: K 3.1; CRE 2.18; GFR 35. cp 03/02 17:28 Order name: CBC with Diff; Complete Time: 18:36 cp 03/02 19:37 Interpretation: Normal except: WBC 11.3; NEUT A 8.2. cp 03/02 17:28 Order name: LFT's; Complete Time: 18:36 cp 03/02 17:28 Order name: Magnesium; Complete Time: 18:36 cp 03/02 17:28 Order name: NT PRO-BNP; Complete Time: 18:36 cp 03/02 17:28 Order name: PT-INR; Complete Time: 18:36 cp 03/02 17:28 Order name: Troponin (emerg Dept Use Only); Complete Time: 18:36 cp 03/02 17:28 Order name: XRAY Chest (1 view); Complete Time: 18:36 cp 03/02 17:28 Order name: CPK; Complete Time: 18:36 cp 03/02 19:12 Order name: Urine Dipstick--Ancillary (enter results); Complete Time: 21:25 ar5 03/02 19:54 Order name: BMP: redraw after potassium and IV fluids; Complete Time: 21:25 cp 05 21:26 Interpretation: Normal except: CL 108; CRE 1.60; GFR 50. cp 03/02 17:28 Order name: EKG; Complete Time: 17:31 cp 03/02 17:28 Order name: Cardiac monitoring; Complete Time: 17:43 cp 03/02 17:28 Order name: EKG - Nurse/Tech; Complete Time: 17:43 cp 03/02 17:28 Order name: IV Saline Lock; Complete Time: 17:43 cp 03/02 17:28 Order name: Labs collected and sent; Complete Time: 17:42 cp 03/02 17:28 Order name: O2 Per Protocol; Complete Time: 17:42 cp 03/02 17:28 Order name: O2 Sat Monitoring; Complete Time: 17:42 cp 03/02 18:37 Order name: Urine Dipstick-Ancillary (obtain specimen); Complete Time: 19:12 cp EC:25 Rate is 116 beats/min. Rhythm is regular. FL interval is normal. QRS interval is cp normal. QT interval is normal. Interpreted by me. Reviewed by me. Administered Medications: 17:46 Drug: NS 0.9% 1000 ml Route: IV; Rate: 1 bolus; Site: left antecubital; ca1 18:50 Follow up: IV Status: Completed infusion; IV Intake: 1000ml ca1 18:40 Drug: NS 0.9% 1000 ml Route: IV; Rate: 1 bolus; Site: left antecubital; ca1 19:45 Follow up: Response: No adverse reaction; IV Status: Completed infusion; IV Intake: ca1 1000ml 18:42 Drug: Potassium Chloride 20 mEq Route: IV; Rate: calculated rate; Site: left ca1 antecubital; 20:50 Follow up: Response: No adverse reaction; IV Status: Completed infusion; IV Intake: ca1 100ml 20:11 Drug: NS 0.9% 1000 ml Route: IV; Rate: 1 bolus; Site: left antecubital; ca1 21:15 Follow up: Response: No adverse reaction; IV Status: Completed infusion; IV Intake: ca1 1000ml Disposition: 03/02/19 21:32 Discharged to Home. Impression: Hypokalemia, Dehydration, Heat exhaustion, unspecified, Other acute kidney failure. - Condition is Stable. - Discharge Instructions: Dehydration, Adult, Potassium Content of Foods, Acute Kidney Injury, Adult, Hypokalemia, Rehydration, Adult. - Medication Reconciliation Form, Thank You Letter, Antibiotic Education, Prescription Opioid Use, Work release form form. - Follow up: Private Physician; When: 1 - 2 days; Reason: Recheck today's complaints. - Problem is new. - Symptoms have improved. Addendum: 03/04/2019 07:02 Co-signature as Attending Physician, Niles Frias MD. r n Signatures: Dispatcher [employer] EDNiles Sargent MD MD rn Jabari Godoy PA PA cp Acob, Agata RN RN ca1 Corrections: (The following items were deleted from the chart) 03/02 19:37 19:37 Normal except: WBC 11.3. cp cp 21:49 21:32 03/02/2019 21:32 Discharged to Home. Impression: Hypokalemia; Dehydration; Heat ca1 exhaustion, unspecified; Other acute kidney failure. Condition is Stable. Forms are Medication Reconciliation Form, Thank You Letter, Antibiotic Education, Prescription Opioid Use. Follow up: Private Physician; When: 1 - 2 days; Reason: Recheck today's complaints. Problem is new. Symptoms have improved. cp
[2019-03-02 22:32] VITALS: O2SAT 96
[2019-03-02 22:34] VITALS: BP 100/63; TEMP 98
--- NOTE | 2019-03-03 08:24 | EKG ---
Test Date: 2019-03-02 Test Time: 17:15:29 Window Dresser: ÁNGEL MEASUREMENT RESULTS: Intervals: Rate: 116 ND: 160 QRSD: 98 QT: 338 QTc: 469 [place]: P: 64 ND: 160 QRS: 124 T: 41 INTERPRETIVE STATEMENTS: Sinus tachycardia Right axis deviation Septal infarct, age undetermined Abnormal ECG Compared to ECG 02/21/2018 18:38:56 Right-axis deviation now present Right superior axis no longer present Myocardial infarct finding still present Electronically Signed On 03-03-19 08:24:11 CDT by Kirby Carl
== END 2019-03-02 21:49 | disposition home or self-care (01) ==
LOC: ER 17:07
DX: E87.6 Hypokalemia (principal); E86.0 Dehydration; N17.8 Other acute kidney failure; X30.XXXA Exposure to excessive natural heat, initial encounter; Z72.0 Tobacco use
CPT/HCPCS: 36415; 71045; 80048; 80076; 81003; 82550; 83735; 83880; 84484; 85025; 85610; 93005; 96361; 96365; 96366; 99284; J7030

== ENCOUNTER 2019-08-22 06:13 | Emergency (ER) | payer BC, SELFPAY ==
[2019-08-22] MEDS ORDERED: HYDROCODONE/APAP 7.5/325 MG TAB ONE (06:35)
[2019-08-22] MEDS ORDERED: KETOROLAC 30 MG/ML INJ ONE (06:35)
[2019-08-22] MEDS ORDERED: LIDOCAINE 4% PATCH ONE (06:35)
--- NOTE | 2019-08-22 08:54 | EDPHYS ---
Physician Documentation [facility] Name: Seymour Ray Age: 33 yrs Sex: Male : 1985 Arrival Date: 08/22/2019 Time: 06:16 Bed 20 Private MD: ED Physician Jabari Gao HPI: 08/22 06:36 This 33 yrs old Male presents to ER via Ambulatory with complaints of Low Back kb Pain. 06:36 The patient presents with pain that is acute. The symptoms are located in the right low kb back. The pain does not radiate. The problem was sustained when lifting. Onset: The symptoms/episode began/occurred 3 day(s) ago. Modifying factors: The patient symptoms are alleviated by nothing, the patient symptoms are aggravated by any movement. Associated signs and symptoms: The patient has no apparent associated signs or symptoms. Severity of symptoms: At their worst the symptoms were moderate, in the emergency department the symptoms are unchanged. The patient has not experienced similar symptoms in the past. The patient has not recently seen a physician. Pt reports he was lifting a lot of stuff on Wednesday, woke up Wednesday with right low back pain that is worse with movement. Denies radiation. Denies urinary symptoms, numbness, tingling. Historical: - Allergies: 06:28 No Known Allergies; bb - Home Meds: 06:28 None [Active]; bb - PMHx: 06:28 Depression; bb - PSHx: 06:28 None; bb - Immunization history:: Adult Immunizations up to date. - Coronavirus screen:: The patient has NOT traveled to [place] in the past 14 days. Proceed with normal triage process as indicated. - Social history:: Smoking status: Patient reports the use of cigarette tobacco products, denies chronic smoking, but will smoke occasionally, Patient reports use of chewing tobacco. Patient uses alcohol, but reports only rare drinking. - Ebola Screening: : No symptoms or risks identified at this time. ROS: 06:35 Constitutional: Negative for fever, chills, and weight loss, Neck: Negative for injury, kb pain, and swelling, Cardiovascular: Negative for chest pain, palpitations, and edema, Respiratory: Negative for shortness of breath, cough, wheezing, and pleuritic chest pain, Abdomen/GI: Negative for abdominal pain, nausea, vomiting, diarrhea, and constipation, : Negative for injury, bleeding, discharge, and swelling, MS/Extremity: Negative for injury and deformity, Skin: Negative for injury, rash, and discoloration, Neuro: Negative for headache, weakness, numbness, tingling, and seizure. 06:35 Back: Positive for pain at rest, pain with movement, of the right low back. Exam: 06:36 Constitutional: This is a well developed, well nourished patient who is awake, alert, kb and in no acute distress. Head/Face: Normocephalic, atraumatic. Chest/axilla: Normal chest wall appearance and motion. Nontender with no deformity. No lesions are appreciated. Cardiovascular: Regular rate and rhythm with a normal S1 and S2. No gallops, murmurs, or rubs. Normal PMI, no JVD. No pulse deficits. Respiratory: Lungs have equal breath sounds bilaterally, clear to auscultation and percussion. No rales, rhonchi or wheezes noted. No increased work of breathing, no retractions or nasal flaring. Abdomen/GI: Soft, non-tender, with normal bowel sounds. No distension or tympany. No guarding or rebound. No evidence of tenderness throughout. Skin: Warm, dry with normal turgor. Normal color with no rashes, no lesions, and no evidence of cellulitis. MS/ Extremity: Pulses equal, no cyanosis. Neurovascular intact. Full, normal range of motion. Neuro: Awake and alert, GCS 15, oriented to person, place, time, and situation. Cranial nerves II-XII grossly intact. Motor strength 5/5 in all extremities. Sensory grossly intact. Cerebellar exam normal. Normal gait. 06:36 Back: pain, that is moderate, of the right low back, ROM is painful, with all movement, normal spinal alignment noted. Vital Signs: 06:28 BP 134 / 87; Pulse 91; Resp 16 S; Temp 97.7(O); Pulse Ox 97% on R/A; Weight 165.56 kg bb (R); Height 6 ft. 1 in. (185.42 cm) (R); Pain 8/10; 06:28 Body Mass Index 48.16 (165.56 kg, 185.42 cm) bb MDM: 06:17 Patient medically screened. kb 06:32 Data reviewed: vital signs, nurses notes. Data interpreted: Pulse oximetry: on room air kb is 97 %. Interpretation: normal. Counseling: I had a detailed discussion with the patient and/or guardian regarding: the historical points, exam findings, and any diagnostic results supporting the discharge/admit diagnosis, the need for outpatient follow up, a family practitioner, to return to the emergency department if symptoms worsen or persist or if there are any questions or concerns that arise at home. Administered Medications: 06:38 Drug: [place] (7.5 mg-325 mg) 1 tabs Route: PO; jd3 06:56 Follow up: Response: No adverse reaction; RASS: Alert and Calm (0) jd3 06:39 Drug: TORadol 30 mg Route: IM; Site: right deltoid; jd3 06:58 Follow up: Response: No adverse reaction jd3 06:40 Drug: Lidocaine Solution (4%) 1 patches Route: Topical; Site: affected area; jd3 06:56 Follow up: Response: No adverse reaction jd3 Disposition: 07:06 Co-signature as Attending Physician, Jabari Gao MD I agree with the assessment and bernardino plan of care. Disposition: 08/22/19 06:33 Discharged to Home. Impression: Low back pain. - Condition is Stable. - Discharge Instructions: Musculoskeletal Pain, Back Injury Prevention, [id number], Back Pain, Adult, [id number], Back Exercises, [id number]. - Prescriptions for Diclofenac Sodium 75 mg Oral Tablet, Delayed Release (E.C.) - take 1 tablet by ORAL route 2 times per day As needed; 30 tablet. orphenadrine citrate 100 mg Oral Tablet Sustained Release - take 1 tablet by ORAL route 2 times per day As needed; 20 tablet. - Medication Reconciliation Form, Thank You Letter, Antibiotic Education, Prescription Opioid Use, Work release form form. - Follow up: Emergency Department; When: As needed; Reason: Worsening of condition. Follow up: Private Physician; When: 2 - 3 days; Reason: Recheck today's complaints, Continuance of care, Re-evaluation by your physician. Signatures: Samra Jacobs, DIRECTOR OF ENTERPRISE ARCHITECTURE-C HAL-Jabari Venegas MD MD cha Ballard, Brenda, RN RN Raheel Bianchi RN RN jd3 Corrections: (The following items were deleted from the chart) 06:36 06:35 Back: Positive for pain at rest, pain with movement, janee weller 07:00 06:33 08/22/2019 06:33 Discharged to Home. Impression: Low back pain. Condition is jd3 Stable. Forms are Medication Reconciliation Form, Thank You Letter, Antibiotic Education, Prescription Opioid Use. Follow up: Emergency Department; When: As needed; Reason: Worsening of condition. Follow up: Private Physician; When: 2 - 3 days; Reason: Recheck today's complaints, Continuance of care, Re-evaluation by your physician. janee
--- NOTE | 2019-08-22 08:54 | ER ---
Nurse's Notes [facility] Name: Seymour Ray Age: 33 yrs Sex: Male : 1985 Arrival Date: 08/22/2019 Time: 06:16 Bed 20 Private MD: Diagnosis: Low back pain Presentation: 08/22 06:25 Presenting complaint: Patient states: he was moving stuff around on Wednesday and bending bb over a lot has lower right back pain no radiation, denies dysuria, vomiting, diarrhea, fever, the pain is constant 8/10. Transition of care: patient was not received from another setting of care. Onset of symptoms was August 20, 2019. Risk Assessment: Do you want to hurt yourself or someone else? Patient reports no desire to harm self or others. Initial Sepsis Screen: Does the patient meet any 2 criteria? No. Patient's initial sepsis screen is negative. Does the patient have a suspected source of infection? No. Patient's initial sepsis screen is negative. Care prior to arrival: None. 06:25 Method Of Arrival: Ambulatory bb 06:25 Acuity: SERJIO 3 bb Historical: - Allergies: 06:28 No Known Allergies; bb - Home Meds: 06:28 None [Active]; bb - PMHx: 06:28 Depression; bb - PSHx: 06:28 None; bb - Immunization history:: Adult Immunizations up to date. - Coronavirus screen:: The patient has NOT traveled to [place] in the past 14 days. Proceed with normal triage process as indicated. - Social history:: Smoking status: Patient reports the use of cigarette tobacco products, denies chronic smoking, but will smoke occasionally, Patient reports use of chewing tobacco. Patient uses alcohol, but reports only rare drinking. - Ebola Screening: : No symptoms or risks identified at this time. Screenin:27 Abuse screen: Denies threats or abuse. Nutritional screening: No deficits noted. jd3 Tuberculosis screening: No symptoms or risk factors identified. Fall Risk Ambulatory Aid- None/Bed Rest/Nurse Assist (0 pts). Gait- Normal/Bed Rest/Wheelchair (0 pts) Mental Status- Oriented to own ability (0 pts). Total Haley Fall Scale indicates No Risk (0-24 pts). Assessment: 06:25 General: Appears in no apparent distress. uncomfortable, Behavior is calm, cooperative, jd3 appropriate for age. Pain: Complains of pain in low back area Quality of pain is described as aching, shooting, pinching, Aggravated by increased activity, repositioning. Neuro: Level of Consciousness is awake, alert, obeys commands, Oriented to person, place, time, situation. Cardiovascular: Denies chest pain, Capillary refill < 3 seconds Patient's skin is warm and dry. Respiratory: Airway is patent Respiratory effort is even, unlabored, Respiratory pattern is regular, symmetrical, Denies cough, shortness of breath. GI: No signs and/or symptoms were reported involving the gastrointestinal system. Patient currently denies abdominal pain, constipation, diarrhea, nausea, vomiting. : No signs and/or symptoms were reported regarding the genitourinary system. Denies burning with urination, urinary frequency. EENT: No signs and/or symptoms were reported regarding the EENT system. Derm: Skin is intact, Skin is dry, Skin is normal, Skin temperature is warm. Musculoskeletal: Circulation, motion, and sensation intact. Range of motion: intact in all extremities. 07:00 Reassessment: Patient appears in no apparent distress at this time. Patient and/or jd3 family updated on plan of care and expected duration. Pain level reassessed. Patient is alert, oriented x 3, equal unlabored respirations, skin warm/dry/pink. Patient states feeling better. Vital Signs: 06:28 BP 134 / 87; Pulse 91; Resp 16 S; Temp 97.7(O); Pulse Ox 97% on R/A; Weight 165.56 kg bb (R); Height 6 ft. 1 in. (185.42 cm) (R); Pain 8/10; 06:28 Body Mass Index 48.16 (165.56 kg, 185.42 cm) bb ED Course: 06:16 Patient arrived in ED. cl3 06:17 Samra Jacobs FNP-C is [facility]. kb 06:17 Jabari Gao MD is Attending Physician. kb 06:25 Raheel Bolaños RN is Primary Nurse. jd3 06:27 Triage completed. bb 06:27 Patient has correct armband on for positive identification. Placed in gown. Bed in low jd3 position. Call light in reach. Side rails up X 1. Adult w/ patient. 06:27 Arm band placed on. jd3 06:59 No provider procedures requiring assistance completed. Patient did not have IV access jd3 during this emergency room visit. Administered Medications: 06:38 Drug: [place] (7.5 mg-325 mg) 1 tabs Route: PO; jd3 06:56 Follow up: Response: No adverse reaction; RASS: Alert and Calm (0) jd3 06:39 Drug: TORadol 30 mg Route: IM; Site: right deltoid; jd3 06:58 Follow up: Response: No adverse reaction jd3 06:40 Drug: Lidocaine Solution (4%) 1 patches Route: Topical; Site: affected area; jd3 06:56 Follow up: Response: No adverse reaction jd3 Outcome: 06:33 Discharge ordered by MD. weller 06:59 Discharged to home ambulatory, with family. jd3 06:59 Condition: stable 06:59 Discharge instructions given to patient, family, Instructed on discharge instructions, follow up and referral plans. medication usage, Demonstrated understanding of instructions, follow-up care, medications, Prescriptions given X 2. 07:00 Patient left the ED. jd3 Signatures: Samra Jacobs, PRECAST MOLDER-C PRECAST MOLDER-CkKim Mcelroy, RN RN Raheel Bianchi RN RN Cassie Freeman cl3
[2019-08-22 09:36] VITALS: BP 132/50; TEMP 98.4; O2SAT 100
== END 2019-08-22 07:00 | disposition home or self-care (01) ==
LOC: ER 06:13
DX: M54.5 Low back pain (principal)
CPT/HCPCS: 96372; 99283

== ENCOUNTER 2021-07-18 13:38 | Emergency (ER) | payer BC ==
[2021-07-18 14:20] LABS: Absolute Lymphocytes (CBC) 1.9 K/uL (0.7-4.9); Hematocrit 43.1 % (39.6-49.0); Lymphocytes % 20.3 % (15.3-44.8); MPV 7.7 fL (7.6-11.3)
[2021-07-18] MEDS ORDERED: ONDANSETRON 4 MG/2 ML VIAL ONE (14:32)
[2021-07-18] MEDS ORDERED: NA CHLORIDE 0.9% 0 ML ONE (14:32)
[2021-07-18] MEDS ORDERED: MORPHINE 4 MG/ML SYR ONE (14:32)
[2021-07-18] MEDS ORDERED: NA CHLORIDE 0.9% 1,000 ML ONE (14:33)
[2021-07-18 14:37] LABS: Albumin 3.5 g/dL (3.4-5.0); Bilirubin Direct 0.1 mg/dL (0-0.2); Bilirubin Total 0.5 mg/dL (0.2-1.0); Potassium 3.7 mmol/L (3.5-5.1); Protein, Total 7.7 g/dL (6.4-8.2)
--- NOTE | 2021-07-18 15:15 | RAD REPORT ---
EXAM DESCRIPTION: CTAbdomen Pelvis W Contrast - 07/18/2021 3:02 pm CLINICAL HISTORY: ABD PAIN COMPARISON: No comparisons TECHNIQUE: CT of the abdomen and pelvis was performed. All CT scans are performed using dose optimization technique as appropriate and may include automated exposure control or mA/KV adjustment according to patient size. FINDINGS: Lower chest: Scattered nodular airspace disease in the lower lobes bilaterally. Liver: No acute abnormality or suspicious lesions. Biliary: No biliary ductal dilatation. Stomach: No significant focal abnormality. Duodenum: No significant focal abnormality. Pancreas: No significant abnormality. Spleen: No significant abnormality. Adrenal: No suspicious lesions. Kidney/ureter: Mild right-sided hydronephrosis secondary to a 4 mm stone in the right proximal ureter . Retroperitoneum: No retroperitoneal adenopathy. Vascular: No aneurysm. Bowel: No significant focal abnormality. Peritoneum: No ascites or free air. Bladder: Grossly unremarkable. Reproductive: No adnexal masses. Bones: No acute fracture. Other: n/a IMPRESSION: Mild right-sided hydroureteronephrosis secondary to a 4 mm stone in the right proximal u reter. Mild nodularity in lung bases may reflect either acute or subacute pneumonia, including possibly Covi d-19.
[2021-07-18] MEDS ORDERED: TAMSULOSIN 0.4 MG SR CAP ONE (15:59)
[2021-07-18] MEDS ORDERED: MAGNESIUM SULFATE 1 gm IVPB 1 GM/100 ML BAG IV ONE (15:59)
--- NOTE | 2021-07-18 16:07 | EDPHYS ---
Physician Documentation [facility] Name: Seymour Ray Age: 35 yrs Sex: Male : 1985 Arrival Date: 07/18/2021 Time: 13:40 Bed 15 Private MD: ED Physician Jabari Gao HPI: 07/18 14:45 This 35 yrs old Male presents to ER via Ambulatory with complaints of kb Abdominal Pain. 14:45 The patient presents with abdominal pain right lower quadrant. Onset: The kb symptoms/episode began/occurred 3 day(s) ago. The symptoms do not radiate. Associated signs and symptoms: none. The symptoms are described as constant. Modifying factors: The symptoms are alleviated by nothing, the symptoms are aggravated by nothing. Severity of pain: At its worst the pain was moderate in the emergency department the pain is unchanged. The patient has not experienced similar symptoms in the past. The patient has not recently seen a physician. Historical: - Allergies: 13:46 No Known Allergies; ll1 - PMHx: 13:46 Depression; ll1 - PSHx: 13:46 None; ll1 - Immunization history:: Client reports receiving the Shlomo \T\ Shlomo single-dose vaccine. - Social history:: Smoking status: Patient reports use of chewing tobacco. Patient/guardian denies using tobacco. ROS: 14:44 Constitutional: Negative for fever, chills, and weight loss. kb 14:44 Abdomen/GI: Positive for abdominal pain, Negative for nausea, vomiting, and diarrhea. 14:44 All other systems are negative. Exam: 14:44 Constitutional: This is a well developed, well nourished patient who is awake, alert, kb and in no acute distress. Head/Face: Normocephalic, atraumatic. ENT: Moist Mucous membranes Cardiovascular: Regular rate and rhythm with a normal S1 and S2. No gallops, murmurs, or rubs. No pulse deficits. Respiratory: Respirations even and unlabored. No increased work of breathing. Talking in full sentences Skin: Warm, dry with normal turgor. Normal color. MS/ Extremity: Pulses equal, no cyanosis. Neurovascular intact. Full, normal range of motion. Neuro: Awake and alert, GCS 15, oriented to person, place, time, and situation. Moves all extremities. Normal gait. Psych: Awake, alert, with orientation to person, place and time. Behavior, mood, and affect are within normal limits. 14:44 Abdomen/GI: Inspection: abdomen appears normal, Bowel sounds: normal, in all quadrants, Palpation: soft, in all quadrants, moderate abdominal tenderness, in the right lower quadrant. Vital Signs: 13:45 BP 162 / 94; Pulse 72; Resp 17; Temp 97.8; Pulse Ox 98% ; Weight 141.52 kg; Height 6 ll1 ft. 1 in. (185.42 cm); Pain 5/10; 13:45 Body Mass Index 41.16 (141.52 kg, 185.42 cm) ll1 MDM: 13:48 Patient medically screened. kb 14:44 Data reviewed: vital signs, nurses notes. Data interpreted: Pulse oximetry: on room air kb is 98 %. Interpretation: normal. 16:06 Counseling: I had a detailed discussion with the patient and/or guardian regarding: the kb historical points, exam findings, and any diagnostic results supporting the discharge/admit diagnosis, lab results, radiology results, the need for outpatient follow up, a urologist, to return to the emergency department if symptoms worsen or persist or if there are any questions or concerns that arise at home. 07/18 13:49 Order name: Basic Metabolic Panel; Complete Time: 14:38 kb 07/18 13:49 Order name: CBC with Diff; Complete Time: 14:30 kb 07/18 13:49 Order name: Hepatic Function; Complete Time: 14:38 kb 07/18 13:49 Order name: Lipase; Complete Time: 14:38 kb 07/18 13:59 Order name: CT Abd/Pelvis - IV Contrast Only; Complete Time: 15:22 kb 07/18 13:49 Order name: IV Saline Lock; Complete Time: 14:13 kb 07/18 13:49 Order name: Labs collected and sent; Complete Time: 14:13 kb Administered Medications: 14:39 Drug: Zofran (Ondansetron) 4 mg Route: IVP; Site: right antecubital; cb5 14:40 Drug: NS 0.9% 1000 ml Route: IV; Rate: 1000 ml; Site: right antecubital; cb5 14:40 Drug: morphine 4 mg Route: IVP; Site: right antecubital; cb5 16:03 Drug: Magnesium Sulfate 1 grams Route: IVPB; Infused Over: 30 mins; Site: right cb5 antecubital; 16:03 Drug: Flomax (tamsulosin) 0.4 mg Route: PO; cb5 16:28 Drug: Ketorolac 30 mg Route: IVP; Site: right antecubital; cb5 Disposition Summary: 07/18/21 16:06 Discharge Ordered Location: Home kb Condition: Stable kb Diagnosis - Calculus of kidney kb Followup: kb - With: Emergency Department - When: As needed - Reason: Worsening of condition Followup: kb - With: Private Physician - When: 2 - 3 days - Reason: Recheck today's complaints, Continuance of care, Re-evaluation by your physician Followup: kb - With: Anthony Ramey MD - When: 2 - 3 days - Reason: Recheck today's complaints Discharge Instructions: - Discharge Summary Sheet kb - Kidney Stones, [id number] kb Forms: - Medication Reconciliation Form kb - Thank You Letter kb - Antibiotic Education kb - Prescription Opioid Use kb Prescriptions: - Flomax 0.4 mg Oral capsule - take 1 capsule by ORAL route once daily 1/2 hour following the same meal each kb day; 10 capsule; Refills: 0, Product Selection Permitted - Augmentin 875-125 mg Oral Tablet - take 1 tablet by ORAL route every 12 hours for 10 days; 20 tablet; Refills: 0, Product Selection Permitted - Zofran 4 mg Oral Tablet - take 1 tablet by ORAL route every 6 hours As needed; 20 tablet; Refills: 0, Product Selection Permitted - Diclofenac Sodium 75 mg Oral tablet,delayed release (DR/EC) - take 1 tablet by ORAL route 2 times per day As needed; 30 tablet; Refills: 0, kb Product Selection Permitted Addendum: 07/20/2021 07:08 Co-signature as Attending Physician, Jabari Gao MD I agree with the assessment and c suero plan of care. Signatures: Dispatcher [employer] Samra Kohli, HAL-C CAMPAIGN ADVISOR-Jabari Venegas MD MD cha Lewis, Lynsay, RN RN ll1 Sanam Snowden, RN RN cb5
--- NOTE | 2021-07-18 16:07 | ER ---
Nurse's Notes [facility] Name: Seymour Ray Age: 35 yrs Sex: Male : 1985 Arrival Date: 07/18/2021 Time: 13:40 Bed 15 Private MD: Diagnosis: Calculus of kidney Presentation: 07/18 13:45 Chief complaint: Patient states: R sided abd pain with nausea for 3 days. Coronavirus ll1 screen: Vaccine status: Patient reports receiving the 1st dose of the Covid vaccine. Client denies travel out of the [place] in the last 14 days. At this time, the client does not indicate any symptoms associated with coronavirus-19. Ebola Screen: Patient denies travel to an Ebola-affected area in the 21 days before illness onset. Initial Sepsis Screen: Does the patient meet any 2 criteria? No. Patient's initial sepsis screen is negative. Does the patient have a suspected source of infection? Yes: Acute abdominal pain. Risk Assessment: Do you want to hurt yourself or someone else? Patient reports no desire to harm self or others. Onset of symptoms was July 16, 2021. 13:45 Method Of Arrival: Ambulatory ll1 13:45 Acuity: SERJIO 3 ll1 Triage Assessment: 14:04 General: Appears comfortable, Behavior is cooperative, appropriate for age. Pain: cb5 Complains of pain in abdomen Pain currently is 5 out of 10 on a pain scale. GI: Abdomen is round distended, Bowel sounds present X 4 quads. Reports upper abdominal pain. Historical: - Allergies: 13:46 No Known Allergies; ll1 - PMHx: 13:46 Depression; ll1 - PSHx: 13:46 None; ll1 - Immunization history:: Client reports receiving the Shlomo \T\ Shlomo single-dose vaccine. - Social history:: Smoking status: Patient reports use of chewing tobacco. Patient/guardian denies using tobacco. Screenin:42 Abuse screen: Denies threats or abuse. Denies injuries from another. Nutritional cb5 screening: No deficits noted. Tuberculosis screening: No symptoms or risk factors identified. 14:43 Fall Risk None identified. cb5 Assessment: 14:00 General: Appears in no apparent distress. comfortable, well groomed, well nourished, cb5 Behavior is calm, cooperative, appropriate for age. Pain: Complains of pain in abdomen Pain currently is 5 out of 10 on a pain scale. Quality of pain is described as aching, crampy. Neuro: No deficits noted. Level of Consciousness is awake, alert, obeys commands. Cardiovascular: No deficits noted. Respiratory: No deficits noted. GI: Abd is soft Abdomen is tender to palpation X 4 quads. in right upper quadrant. : No deficits noted. EENT: No deficits noted. Derm: No deficits noted. Musculoskeletal: No deficits noted. 15:10 Pain: Complains of pain in abdomen Pain currently is 2 out of 10 on a pain scale. cb5 16:36 Reassessment: Patient states feeling better. cb5 16:36 Reassessment: pt is receving mag I,V, once infused will be discharged home. cb5 Vital Signs: 13:45 BP 162 / 94; Pulse 72; Resp 17; Temp 97.8; Pulse Ox 98% ; Weight 141.52 kg; Height 6 ll1 ft. 1 in. (185.42 cm); Pain 5/10; 13:45 Body Mass Index 41.16 (141.52 kg, 185.42 cm) ll1 ED Course: 13:40 Patient arrived in ED. as 13:46 Triage completed. ll1 13:47 [facility] kb 13:47 Jabari Gao MD is Attending Physician. kb 13:47 Arm band placed on Patient placed in an exam room, on a stretcher. ll1 14:04 Sanam Snowden, RN is Primary Nurse. cb5 14:13 Inserted saline lock: 20 gauge in right antecubital area, using aseptic technique. mb7 14:26 Basic Metabolic Panel Sent. cb5 14:26 CBC with Diff Sent. cb5 14:26 Hepatic Function Sent. cb5 14:26 Lipase Sent. cb5 14:42 Call light in reach. Side rails up X2. cb5 14:42 No provider procedures requiring assistance completed. cb5 15:03 CT Abd/Pelvis - IV Contrast Only In Process Unspecified. EDMS 16:07 Anthony Ramey MD is Referral Physician. kb Administered Medications: 14:39 Drug: Zofran (Ondansetron) 4 mg Route: IVP; Site: right antecubital; cb5 14:40 Drug: NS 0.9% 1000 ml Route: IV; Rate: 1000 ml; Site: right antecubital; cb5 14:40 Drug: morphine 4 mg Route: IVP; Site: right antecubital; cb5 16:03 Drug: Magnesium Sulfate 1 grams Route: IVPB; Infused Over: 30 mins; Site: right cb5 antecubital; 16:03 Drug: Flomax (tamsulosin) 0.4 mg Route: PO; cb5 16:28 Drug: Ketorolac 30 mg Route: IVP; Site: right antecubital; cb5 Outcome: 16:06 Discharge ordered by . janee 17:02 Patient left the ED. 17:02 Discharged to home ambulatory. cb5 17:02 Condition: stable 17:02 Discharge instructions given to patient. Signatures: Dispatcher [employer] EDSamra Burnham, ALEXSANDRA HONG-Jenifer Jean Shelby, RN RN ss Lewis, Lynsay, RN RN ll1 Caroline Licea Sanam Cary RN RN cb5
[2021-07-18] MEDS ORDERED: KETOROLAC 30 MG/ML INJ ONE (16:28)
[2021-07-18 17:38] VITALS: BP 162/94; TEMP 97.8; O2SAT 98
== END 2021-07-18 17:02 | disposition home or self-care (01) ==
LOC: ER 13:38
DX: N20.0 Calculus of kidney (principal)
CPT/HCPCS: 85025; 80048; 36415; 80076; 83690; 74177; 96375; 96374; 99284; Q9967; J3475; J7030; J2405; J7040